=== PATIENT | male | born 1945 | race Caucasian/White ===

== ENCOUNTER → 2019-08-21 | Outpatient (CLI) | payer MEDICARE, BC ==
[~2019-08-21] MED LIST: ALLEGRA ALLERG180 MG PO; ALLEGRA D PO; CARDIZEM CD120 MG PO; COUMADIN4 M1 PO; FLOMAX0.4 MG PO; GRAPE SEED EXTRACT PO; K-DUR 1010 MEQ PO; LASIX20 MG PO; LISINOPRIL20 MG PO; LODINE500 MG PO; PRADAXA150 MG PO; SAW PALMETTO450 MG PO; SIMVASTATIN40 MG PO; VITAMIN C1000 M2 PO; Zofran4 MG PO; [UNRECOGNIZED DRUG - OTHER]
[2019-08-21 13:18] LABS: BASO # 0.1 10*3/uL (0.0-0.1); BASO % 0.6 % (0.0-1.0); EOS # 0.1 10*3/uL (0.0-0.4); EOS % 1.3 % (1.0-4.0); HEMATOCRIT 40.2 % (42.0-52.0); LYMPH # 1.2 10*3/uL (1.3-4.4); LYMPH % 15.1 % (27.0-41.0); MEAN CELL VOLUME 95.7 fl (80.0-94.0); MEAN CORPUSCULAR HGB 33.3 pg (27.0-31.0); MEAN CORPUSCULAR HGB CONC 34.8 g/dl (33.0-37.0); MEAN PLATELET VOLUME 11.1 fl (9.6-12.3); MONO # 0.6 10*3/uL (0.1-1.0); MONO % 6.8 % (3.0-9.0); NEUT # 6.2 10*3/uL (2.3-7.9); NEUT % 75.5 % (47.0-73.0); PLATELET COUNT AUTOMATED 268 10*3/uL (130-400); WHITE BLOOD COUNT 8.2 10*3/uL (4.8-10.8)
[2019-08-21 13:50] LABS: ALBUMIN 3.2 gm/dl (3.1-4.5); ALKALINE PHOSPHATASE 49 U/L (45-117); BUN 26 mg/dl (7-24); CHLORIDE 101 mmol/L (98-107); CHOLESTEROL 111 mg/dL (<200); CREATININE 1.11 mg/dL (0.70-1.30); FREE T4 0.95 ng/dl (0.76-1.46); HDL CHOLESTEROL 54 mg/dl (40-60); LDL CHOLESTEROL 25 mg/dL (9-159); POTASSIUM 4.1 mmol/L (3.5-5.1); SGOT/AST 15 IU/L (3-35); SGPT/ALT 26 U/L (12-78); SODIUM 133 mmol/L (136-145); TOTAL PROTEIN 7.3 gm/dL (6.4-8.2); TRIGLYCERIDES 161 mg/dl (<150); VLDL CHOLESTEROL 32 mg/dL (6-40)
[2019-08-21 15:57] LABS: VITAMIN D, 25-HYDROXY 83.5 ng/mL (30-100)
== END | disposition home or self-care (01) ==
LOC: LAB 12:14
PROVIDERS: Internal Medicine
DX: I10 Essential (primary) hypertension (principal); E11.9 Type 2 diabetes mellitus without complications; E78.2 Mixed hyperlipidemia; E55.9 Vitamin D deficiency, unspecified; D51.9 Vitamin B12 deficiency anemia, unspecified; D52.9 Folate deficiency anemia, unspecified

== ENCOUNTER → 2019-11-13 | Outpatient (CLI) | payer MEDICARE, BC | END | disposition home or self-care (01) | LOC: RESCLI 00:35 | DX: I48.91 Unspecified atrial fibrillation (principal); E11.65 Type 2 diabetes mellitus with hyperglycemia; E78.5 Hyperlipidemia, unspecified; K59.00 Constipation, unspecified; I11.0 Hypertensive heart disease with heart failure; E55.9 Vitamin D deficiency, unspecified; I50.30 Unspecified diastolic (congestive) heart failure; E03.9 Hypothyroidism, unspecified; G45.9 Transient cerebral ischemic attack, unspecified; Z79.899 Other long term (current) drug therapy; Z87.891 Personal history of nicotine dependence; Z72.89 Other problems related to lifestyle; Z88.8 Allergy status to other drugs, medicaments and biological substances ==

== ENCOUNTER 2022-11-18 11:57 | Emergency (ER) | payer MEDICARE, BC ==
[2022-11-18] MEDS ORDERED: GLUMETZA1000 MG PO (13:04)
[2022-11-18] MEDS ORDERED: LASIX40 MG PO (13:04)
[2022-11-18] MEDS ORDERED: ALDACTONE25 M1 PO (13:04)
[2022-11-18 13:05] LABS: BASO % 0.2 % (0.0-1.0); EOS # 0.1 10*3/uL (0.0-0.4); LYMPH % 7.3 % (27.0-41.0); MEAN CELL VOLUME 94.3 fl (80.0-94.0); MEAN CORPUSCULAR HGB 31.5 pg (27.0-31.0); MEAN CORPUSCULAR HGB CONC 33.4 g/dl (33.0-37.0); MONO # 0.8 10*3/uL (0.1-1.0); MONO % 5.9 % (3.0-9.0); NEUT # 11.4 10*3/uL (2.3-7.9); NEUT % 83.5 % (47.0-73.0); PLATELET COUNT AUTOMATED 270 10*3/uL (130-400); RED BLOOD COUNT 3.71 10*6/uL (4.50-5.90); RED CELL DISTRI WIDTH 13.2 % (0-14.5); WHITE BLOOD COUNT 13.6 10*3/uL (4.8-10.8)
[2022-11-18] MEDS ORDERED: DILTIAZEM ER240 M1 PO (13:06)
[2022-11-18] MEDS ORDERED: ELIQUIS5 M1 PO (13:07)
[2022-11-18] MEDS ORDERED: VITAMIN D3250 MC1 PO (13:07)
[2022-11-18] MEDS ORDERED: ROSUVASTATIN CAL5 MG PO (13:07)
[2022-11-18] MEDS ORDERED: MEMANTINE HCL5 MG PO (13:07)
[2022-11-18] MEDS ORDERED: HYDROXYZINE HCL25 MG PO (13:08)
[2022-11-18] MEDS ORDERED: DONEPEZIL HCL10 MG PO (13:09)
[2022-11-18 13:22] LABS: TOTAL PROTEIN 6.5 gm/dL (6.0-8.0)
[2022-11-18 13:29] LABS: POTASSIUM 6.6 mmol/L (3.4-5.1)
== END 2022-11-19 01:05 | disposition short-term general hospital (02) ==
LOC: ED 11:57
PROVIDERS: Physician Assistant
DX: N17.9 Acute kidney failure, unspecified (principal); K82.8 Other specified diseases of gallbladder; D72.829 Elevated white blood cell count, unspecified; F02.80 Dementia in other diseases classified elsewhere, unspecified severity, without behavioral disturbance, psychotic disturbance, mood disturbance, and anxiety; Z86.73 Personal history of transient ischemic attack (TIA), and cerebral infarction without residual deficits; Z88.8 Allergy status to other drugs, medicaments and biological substances; I48.91 Unspecified atrial fibrillation; Z98.890 Other specified postprocedural states; Z20.822 Contact with and (suspected) exposure to COVID-19